=== PATIENT | female | born 1965 | race Caucasian/White ===

== ENCOUNTER 2019-12-20 13:09 | Outpatient (CLI) | payer OTHER, SELFPAY ==
--- NOTE | ~2019-12-20 | XR_ITS ---
EXAMINATION: XR_CERV2-3V_CR DATE: 12/20/2019 13:24 INDICATION: Neck pain. TECHNIQUE: 4 views of cervical spine were obtained. COMPARISON: Cervical spine radiographs 03/24/2013 FINDINGS: There is 2 mm retrolisthesis of C4 on C5. There is hypolordosis of cervical spine. Vertebra l body heights are normal. There is mildly decreased disc height at C3-C4 and C5-C6, severely decreas ed disc height at C4-C5, and moderately decreased disc height at C6-C7. There is multilevel uncoverte bral joint osteoarthritis, severe bilaterally at C4-C5 and C6-C7. There is multilevel mild facet join t osteoarthritis. There is mild central canal stenosis at C4-C5 and C6-C7. No prevertebral soft tissu e swelling. IMPRESSION: 1. Worsened severe cervical spondylosis. Reviewed, dictated and finalized at location A. ONATION TESTER
== END 2019-12-20 13:10 | disposition home or self-care (01) ==
PROVIDERS: PCP Family Medicine; Visit Provider Family Medicine
DX: R42 Dizziness and giddiness (principal); M47.812 Spondylosis without myelopathy or radiculopathy, cervical region
CPT/HCPCS: 72040; 92557; 92567

== ENCOUNTER 2019-12-20 18:04 | Outpatient (CLI) | payer OTHER, SELFPAY ==
--- NOTE | ~2019-12-20 | CT_ITS ---
EXAMINATION: CT brain wo con DATE: 12/20/2019 18:35 INDICATION: Head injury 5 days prior. Positional dizziness. Right-sided hearing loss. TECHNIQUE: Computed tomography (CT) of the head was performed without intravenous contrast. Sagittal and coronal reconstructions were performed. The mA was adjusted according to patient size. Iterative reconstruction technique was employed. The dose-length product was 605.33 mGy-cm. COMPARISON: head CT dated 03/24/13 and brain MR dated 04/21/2017 FINDINGS: No fracture. No acute intracranial hemorrhage, acute infarction or abnormal extra axial fluid collect ion. Ventricles are normal and symmetric. There are 4 small dural based calcifications. The largest i s along the squamosal portion of the right temporal bone measures 6 x 3 mm with semicircular configur ation suggesting a calcified meningioma. Additional smaller calcifications are seen near the course o f the lateral meningeal arteries, 2 on the right and one on the left. Mucous retention cyst in the ri ght sphenoid sinus. Orbits are normal. Bilateral mastoid air cells and middle ear cavities are clear. Internal auditory canals are unremarkable. IMPRESSION: 1. No fracture or acute intracranial process. 2. 4 small dural based calcifications which raises the possibility of multiple meningiomas such as in the setting of neurofibromatosis 2. Given the provided history of unilateral hearing loss and positi onal dizziness would consider further evaluation with pre and postcontrast MRI of the temporal bones/ internal auditory canals. Reviewed, dictated and finalized at location A. FLIGHT TECHNICIAN IMPRESSION: 1. No fracture or acute intracranial process. 2. 4 small dural based calcifications which raises the possibility of multiple meningiomas such as in the setting of neurofibromatosis 2. Given the provided h istory of unilateral hearing loss and positional dizziness would consider furth er evaluation with pre and postcontrast MRI of the temporal bones/internal addison tory canals.
== END 2019-12-20 18:05 | disposition home or self-care (01) ==
PROVIDERS: PCP Family Medicine; Visit Provider Family Medicine
DX: M54.2 Cervicalgia (principal); R42 Dizziness and giddiness; R51 Headache; S09.90XA Unspecified injury of head, initial encounter; R93.0 Abnormal findings on diagnostic imaging of skull and head, not elsewhere classified
CPT/HCPCS: 70450

== ENCOUNTER 2019-12-21 08:48 | Outpatient (CLI) | payer OTHER, SELFPAY ==
[2019-12-21 17:26] LABS: Basophils Absolute Auto 0.1 K/mm3 (0.0-0.1); Basophils Percent Auto 1.1 % (0.2-1.2); Eosinophils Absolute Auto 0.2 K/mm3 (0-0.3); Eosinophils Percent Auto 2.2 % (0-4.4); Hematocrit 44.4 % (37.0-47.0); Hemoglobin 13.7 g/dL (12.0-15.0); Immature Granulocyte Absolute 0.02 K/mm3 (0.00-0.031); Immature Granulocyte Percent A 0.3 % (0-0.5); Lymphocytes Absolute Auto 2.37 K/mm3 (0.9-3.2); Mean Corpuscular HGB Conc 30.9 g/dl (32-36); Mean Corpuscular Hemoglobin 28.3 pg (26-34); Mean Corpuscular Volume 91.7 fl (80-100); Mean Platelet Volume 12.1 fl (7.4-10.4); Monocytes Absolute Auto 0.5 K/mm3 (0.1-0.6); Monocytes Percent Auto 7.3 % (2.6-8.5); Neutrophils Absolute Auto 4.2 K/mm3 (1.3-6.7); Neutrophils Percent Auto 57.1 % (45.5-73.1); Platelet Count Result 277 k/mm3 (150-375); Red Blood Count 4.84 M/mm3 (4.2-5.4); Red Cell Distribution Width 13.7 % (11.5-14.5); White Blood Count 7.4 K/mm3 (4.5-10.0)
[2019-12-21 17:32] LABS: Add Urine Microscopic? YES; Appearance Urine Clear (Clear); Bilirubin Urine Negative (Negative); Blood Urine 1+ (Negative); Color Urine Yellow (Yellow); Glucose Urine UA Negative (Negative); Ketones Urine Negative (Negative); Leukocyte Esterase Ur Negative LEU/UL (Negative); Mucus Urine Rare /lpf; Nitrate Urine Negative (Negative); Protein Urine Negative (Negative); RBC Urine 0-2 /hpf (0-2); Specific Grav Ur 1.018 (1.001-1.035); Squamous Epithelial Cell Urine Rare /hpf (Few); Urobilinogen Urine Negative mg/dL (<2.0); WBC Urine 0-3 /hpf
[2019-12-21 17:37] LABS: Alanine Aminotransferase 20 U/L (4-35); Albumin Level 4.5 g/dL (3.5-5.1); Alkaline Phosphatase 98 U/L (38-126); Aspartate Amino Transferase 22 U/L (14-36); Bilirubin,Total 0.6 mg/dL (0.2-1.3); Blood Urea Nitrogen 18 mg/dL (7-17); Calcium 9.8 mg/dL (8.4-10.2); Carbon Dioxide 29 mmol/L (22-30); Chloride 96 mmol/L (98-107); Cholesterol 243 mg/dL (0-200); Estimated Glomerular Filt Rate > 60; Glucose 101 mg/dL (65-105); HDL Direct 81 mg/dL; Magnesium 2.3 mg/dL (1.6-2.3); Sodium 138 mmol/L (137-145); Triglycerides 101 mg/dL (<150)
[2019-12-21 17:45] LABS: LDL Cholesterol Direct 146 mg/dL
[2019-12-21 17:50] LABS: Free T4 Free Thyroxine 1.23 ng/mL (0.78-2.19); Vitamin D 25 Hydroxy 47.3 ng/mL
[2019-12-21 17:52] LABS: Rheumatoid Factor < 8.6 IU/ML (<12)
[2019-12-21 18:39] LABS: Folic Acid 8.1 ng/mL (2.76->20)
[2019-12-21 18:53] LABS: CRP 0.5 mg/dL (<1.0)
[2019-12-23 13:10] LABS: C-Peptide 2.13 ng/mL (0.80-3.85); FSH 57.6 mIU/mL (***); Progesterone <0.2 ng/mL (***); Triiodothyronine T3 Free 3.1 pg/mL (2.3-4.2)
[2019-12-25 12:25] LABS: T3 Reverse 14 ng/dL (8-25)
[2019-12-25 14:18] LABS: Testosterone Free 1.4 pg/mL (0.1-6.4); Testosterone Total 22 ng/dL (2-45)
[2019-12-26 12:54] LABS: Sex Hormone Binding Globulin 99 nmol/L (17-124)
[2019-12-28 16:31] LABS: Estradiol, Ultrasensitive 8 pg/mL
== END 2019-12-21 08:49 | disposition home or self-care (01) ==
LOC: ANHBWCLAB 08:51
PROVIDERS: PCP Family Medicine; Visit Provider Family Medicine
DX: E25.9 Adrenogenital disorder, unspecified (principal); I10 Essential (primary) hypertension; E66.9 Obesity, unspecified; R42 Dizziness and giddiness; R51 Headache; M19.90 Unspecified osteoarthritis, unspecified site; Z79.899 Other long term (current) drug therapy; Z82.62 Family history of osteoporosis
CPT/HCPCS: 36415; 80053; 80061; 81001; 82306; 82607; 82670; 82746; 83001; 83735; 84144; 84270; 84402; 84403; 84439; 84443; 84481; 84482; 84681; 85025; 86038; 86140; 86430

== ENCOUNTER 2019-12-21 16:39 | Outpatient (CLI) | payer OTHER, SELFPAY ==
--- NOTE | ~2019-12-21 | MR_ITS ---
EXAMINATION: MR brain IAC wo/w con DATE: 12/21/2019 17:54 INDICATION: Dizziness and giddiness. TECHNIQUE: Magnetic resonance imaging (MRI) of the brain, brainstem, and internal auditory canals was performed without and with 20 mL MultiHance intravenous contrast. Sequences included sagittal and ax ial T1-weighted FSE, axial diffusion-weighted FS EPI, axial T2*-weighted GRE, axial T2-weighted FLAIR Propeller, axial T2-weighted Propeller, small glrfr-qz-unnj coronal FIESTA, small wdsqt-lz-xsxz sarah nal T1-weighted FSE, and small oquxr-gv-ugli axial T1-weighted SPGR. Postcontrast sequences included axial T1-weighted FSE, small qlglm-em-kbkx coronal T1-weighted FSE, and small ecgwx-za-dcrn axial T1- weighted SPGR. Apparent diffusion coefficient (ADC) maps were created. COMPARISON: Brain MRI 04/21/2017 FINDINGS: There are scattered areas of nonspecific increased T2-weighted signal intensity in the cere bral white matter. There is no intracranial hemorrhage, acute infarction, or abnormal intracranial ma ss lesion. The ventricles are normal in size. The internal auditory canals and inner and middle ears are normal. The mastoid air cells are normal. There are mucous retention cysts in the sphenoid and ri ght maxillary sinuses. The orbits are normal. IMPRESSION: 1. Unchanged mild nonspecific cerebral white matter disease, which likely represents chronic small ve ssel ischemic disease. Reviewed, dictated and finalized at location A. AURANT LINE SERVER IMPRESSION: 1. Unchanged mild nonspecific cerebral white matter disease, which likely repre sents chronic small vessel ischemic disease.
[2019-12-21 17:19] LABS: Blood Urea Nitrogen 20 mg/dL (8-26); Estimated Glomerular Filt Rate > 60
== END 2019-12-21 16:40 | disposition home or self-care (01) ==
PROVIDERS: PCP Family Medicine; Visit Provider Family Medicine
DX: R42 Dizziness and giddiness (principal); R90.89 Other abnormal findings on diagnostic imaging of central nervous system; R90.82 White matter disease, unspecified
CPT/HCPCS: 70553; A9577

== ENCOUNTER 2019-12-28 16:54 | Outpatient (RCR) | payer OTHER, SELFPAY ==
--- NOTE | 2019-12-28 17:43 | PTOPEVAL ---
Thank you for referring this patient to [facility]. Please review, sign, date and return this plan of care [facility]. I agree with and certify that the following plan of care is medically necessary. Referring Physician Date Admitting Provider: Attending Provider: Emilio Borden DO Referring Provider: *PT Outpatient Evaluation Start: 12/28/19 16:59 Freq: Status: Active Protocol: Document 12/28/19 17:00 REMEDIOS (Rec: 12/28/19 17:36 [id number] Therapy Assessment Status Assessment Status Assessment Status Evaluation Outpatient Past Medical History Past Medical History Reason Unable to Obtain see patient intake form Evaluation Information Problem Diagnosis dorsalgia, dizziness and giddiness Onset 12/18/19 Additional Evaluation Detail DHI = 62% functionally declined Subjective Information patient reports she is having Query Text:As Reported By Patient/ vertigo. she reports she has Family had symptoms for about 1 week and 3 days. she reports she has been to the md. she reports she does have a history of back and neck pain. she reports she has never had vertigo. she reports the friday prior to issues beginning she reports she hit her head when turning on her work equipment. she reports she has had some hearing problems associated with this injury. she reports a week ago friday she began having symptoms with laying down in bed. she reports she was in a daze initially but is better. she reports she has the most symptoms with getting down and up from her R side. she reports she does have symptoms to either side. Prior Level of Function Comments Additional Prior Level of Function no issues prior to hitting her Comments head. she reports she has a long history of back and neck pain. Pain Assessment Timing of Pain Assessment Timing of Pain Assessment Assessment Pain Scale Pain Scale Used Numeric (1 - 10) Self Report Pain Assessment Neck Reported Pain Level 4
--- NOTE | 2020-01-25 17:31 | PCPTNOTE ---
01/25/20- pt will be discharged on this date per evaluating therapist.KARYNA
== END 2019-12-31 08:47 | disposition home or self-care (01) ==
LOC: CHSPT 16:54
PROVIDERS: PCP Family Medicine; Visit Provider Family Medicine
DX: R42 Dizziness and giddiness (principal); M54.9 Dorsalgia, unspecified
CPT/HCPCS: 97112; 97161; 97530

== ENCOUNTER 2022-02-15 07:45 | Outpatient (CLI) | payer OTHER, SELFPAY | END 2022-02-15 07:46 | disposition home or self-care (01) | LOC: ANHBWCAUD 07:46 | PROVIDERS: PCP Family Medicine; Visit Provider Family Medicine | DX: H93.19 Tinnitus, unspecified ear (principal); H90.41 Sensorineural hearing loss, unilateral, right ear, with unrestricted hearing on the contralateral side | CPT/HCPCS: 92557; 92567 ==

== ENCOUNTER 2022-07-29 09:21 | Outpatient (CLI) | payer OTHER, SELFPAY ==
--- NOTE | ~2022-07-29 | XR_ITS ---
EXAMINATION: XR finger 3rd LT min 2V DATE: 07/29/2022 09:29 INDICATION: Left hand third digit pain and swelling. TECHNIQUE: 4 views of left hand third digit were obtained. COMPARISON: Left hand radiographs 07/02/2010 FINDINGS: Bone alignment is normal. No acute fracture. There is mild osteoarthritis of third distal i nterphalangeal joint. IMPRESSION: 1. No fracture. Reviewed, dictated and finalized at location B. IMPRESSION: 1. No fracture.
== END 2022-07-29 09:22 | disposition home or self-care (01) ==
LOC: ANHBWCIMG 09:23
PROVIDERS: PCP Family Medicine; Visit Provider Family Medicine
DX: M19.042 Primary osteoarthritis, left hand (principal)
CPT/HCPCS: 73140

== ENCOUNTER 2022-10-07 11:29 | Outpatient (CLI) | payer OTHER, SELFPAY ==
[2022-10-07 18:48] LABS: Hemoglobin A1C 5.7 % (<5.7)
[2022-10-07 18:51] LABS: Alanine Aminotransferase 41 U/L (6-35); Albumin Level 4.6 g/dL (3.5-5.1); Alkaline Phosphatase 94 U/L (38-126); Anion Gap 3 mmol/L (8-16); Aspartate Amino Transferase 89 U/L (14-36); Bilirubin,Total 0.7 mg/dL (0.2-1.3); Blood Urea Nitrogen 17 mg/dL (7-17); Calcium 9.2 mg/dL (8.4-10.2); Carbon Dioxide 35 mmol/L (22-30); Chloride 97 mmol/L (98-107); Cholesterol 244 mg/dL (0-200); Estimated Glomerular Filt Rate > 60; Glucose 81 mg/dL (65-110); HDL Direct 62 mg/dL; Potassium 3.9 mmol/L (3.4-5.0); Sodium 135 mmol/L (137-145); Triglycerides 125 mg/dL (<150)
[2022-10-07 18:57] LABS: Basophils Absolute Auto 0.1 K/mm3 (0.0-0.1); Basophils Percent Auto 0.7 % (0.2-1.2); Eosinophils Absolute Auto 0.2 K/mm3 (0-0.3); Eosinophils Percent Auto 1.7 % (0-4.4); Hemoglobin 13.7 g/dL (12.0-15.0); Immature Granulocyte Absolute 0.03 K/mm3 (0.00-0.031); Immature Granulocyte Percent A 0.3 % (0-0.5); Lymphocytes Absolute Auto 2.73 K/mm3 (0.9-3.2); Lymphocytes Percent Auto 30.3 % (18.3-44.2); Mean Corpuscular HGB Conc 30.4 g/dl (32-36); Mean Corpuscular Hemoglobin 28.1 pg (26-34); Mean Corpuscular Volume 92.4 fl (80-100); Mean Platelet Volume 11.9 fl (7.4-10.4); Monocytes Absolute Auto 0.6 K/mm3 (0.1-0.6); Monocytes Percent Auto 7.1 % (2.6-8.5); Neutrophils Absolute Auto 5.4 K/mm3 (1.3-6.7); Neutrophils Percent Auto 59.9 % (45.5-73.1); Platelet Count Result 306 k/mm3 (150-375); Red Blood Count 4.87 M/mm3 (4.2-5.4); Red Cell Distribution Width 14.3 % (11.5-14.5)
[2022-10-07 19:01] LABS: LDL Cholesterol Direct 117 mg/dL
[2022-10-10 18:08] LABS: ANA Cascade Screen Negative (Negative)
== END 2022-10-07 11:30 | disposition home or self-care (01) ==
PROVIDERS: PCP Family Medicine; Visit Provider Family Medicine
DX: M25.50 Pain in unspecified joint (principal); M54.50 Low back pain, unspecified; G89.29 Other chronic pain; E66.9 Obesity, unspecified; F41.9 Anxiety disorder, unspecified
CPT/HCPCS: 36415; 80053; 80061; 83036; 84443; 85025; 86038

== ENCOUNTER 2023-05-21 07:27 | Outpatient (CLI) | payer OTHER, SELFPAY ==
[2023-05-21 19:12] LABS: Hematocrit 42.4 % (37.0-47.0); Hemoglobin 13.2 g/dL (12.0-15.0); Mean Corpuscular HGB Conc 31.1 g/dl (32-36); Mean Corpuscular Hemoglobin 28.4 pg (26-34); Mean Corpuscular Volume 91.2 fl (80-100); Mean Platelet Volume 11.6 fl (7.4-10.4); Platelet Count Result 348 k/mm3 (150-375); Red Blood Count 4.65 M/mm3 (4.2-5.4); Red Cell Distribution Width 13.9 % (11.5-14.5)
[2023-05-21 19:33] LABS: Alanine Aminotransferase 34 U/L (6-35); Albumin Level 4.4 g/dL (3.5-5.1); Alkaline Phosphatase 104 U/L (38-126); Anion Gap 7 mmol/L (8-16); Aspartate Amino Transferase 99 U/L (14-36); Bilirubin,Total 0.5 mg/dL (0.2-1.3); Blood Urea Nitrogen 19 mg/dL (7-17); Calcium 9.5 mg/dL (8.4-10.2); Carbon Dioxide 34 mmol/L (22-30); Chloride 97 mmol/L (98-107); Estimated Glomerular Filt Rate > 60; Glucose 92 mg/dL (65-110); Potassium 4.3 mmol/L (3.4-5.0); Sodium 138 mmol/L (137-145)
[2023-05-21 20:02] LABS: Hemoglobin A1C 5.6 % (<5.7)
== END 2023-05-21 07:28 | disposition home or self-care (01) ==
PROVIDERS: PCP Family Medicine; Visit Provider Family Medicine
DX: Z00.00 Encounter for general adult medical examination without abnormal findings (principal); R73.03 Prediabetes
CPT/HCPCS: 36415; 80053; 83036; 85027

== ENCOUNTER 2024-03-03 07:30 | Outpatient (CLI) | payer OTHER, SELFPAY ==
--- NOTE | ~2024-03-03 | XR_ITS ---
EXAMINATION: XR chest 2V DATE: 03/03/2024 10:26 INDICATION: Shortness of breath. TECHNIQUE: Frontal and lateral views of the chest were obtained. COMPARISON: Chest 2 views 10/19/2016, CT abdomen and pelvis 09/05/2018 FINDINGS: There is no pneumonia, pleural effusion, or pneumothorax. There are prominent pericardial f at pads. The heart size is normal. IMPRESSION: 1. No acute cardiopulmonary disease. Reviewed, dictated and finalized at location A.
[2024-03-03 20:47] LABS: Appearance Urine Clear (Clear); Bilirubin Urine Negative (Negative); Blood Urine Negative (Negative); Color Urine Yellow (Yellow); Glucose Urine UA Negative (Negative); Ketones Urine Negative (Negative); Leukocyte Esterase Ur Negative LEU/UL (Negative); Nitrate Urine Negative (Negative); Protein Urine Negative (Negative); Specific Grav Ur 1.018 (1.001-1.035); Urobilinogen Urine 0.2 mg/dL (<2.0); pH Urine 6.5 (5.0-9.0)
[2024-03-03 20:55] LABS: Hematocrit 42.6 % (37.0-47.0); Hemoglobin 12.9 g/dL (12.0-15.0); Mean Corpuscular Volume 92.4 fl (80-100); Red Blood Count 4.61 M/mm3 (4.2-5.4); White Blood Count 8.2 K/mm3 (4.5-10.0)
[2024-03-03 20:55] LABS: Add Urine Microscopic? NO
[2024-03-03 20:56] LABS: Mean Corpuscular HGB Conc 30.3 g/dl (32-36); Mean Platelet Volume 11.8 fl (7.4-10.4); Platelet Count Result 262 k/mm3 (150-375); Red Cell Distribution Width 14.1 % (11.5-14.5)
[2024-03-03 20:58] LABS: Alanine Aminotransferase 29 U/L (6-35); Albumin Level 4.7 g/dL (3.5-5.1); Alkaline Phosphatase 99 U/L (38-126); Anion Gap 6 mmol/L (4-12); Aspartate Amino Transferase 54 U/L (14-36); Bilirubin,Total 0.6 mg/dL (0.2-1.3); Blood Urea Nitrogen 24 mg/dL (7-17); Carbon Dioxide 30 mmol/L (22-30); Chloride 101 mmol/L (98-107); Cholesterol 245 mg/dL (0-200); Estimated Glomerular Filt Rate > 60; Glucose 100 mg/dL (65-110); HDL Direct 54 mg/dL; Lactate Dehydrogenase 190 U/L (120-246); Potassium 4.6 mmol/L (3.4-5.0); Sodium 137 mmol/L (137-145); Triglycerides 119 mg/dL (<150)
[2024-03-03 21:05] LABS: NT Pro B Type Natriuretic Pept 42 pg/mL (19.9-100)
[2024-03-03 21:09] LABS: LDL Cholesterol Direct 149 mg/dL
[2024-03-03 21:14] LABS: Vitamin D 25 Hydroxy 23.9 ng/mL
[2024-03-03 21:42] LABS: Erythrocyte Sedimentation Rate 13 mm/hr (0-20)
[2024-03-03 22:11] LABS: Hemoglobin A1C 5.4 % (<5.7)
[2024-03-05 12:23] LABS: CRP, High Sensitivity >20.0 mg/L
== END 2024-03-03 07:31 | disposition home or self-care (01) ==
PROVIDERS: PCP Family Medicine; Visit Provider Family Medicine
DX: Z00.00 Encounter for general adult medical examination without abnormal findings (principal); G51.4 Facial myokymia; R06.00 Dyspnea, unspecified; R53.83 Other fatigue; T78.40XA Allergy, unspecified, initial encounter; R73.03 Prediabetes; R42 Dizziness and giddiness; K21.9 Gastro-esophageal reflux disease without esophagitis; J45.909 Unspecified asthma, uncomplicated; G51.0 Bell's palsy; F41.9 Anxiety disorder, unspecified; E66.01 Morbid (severe) obesity due to excess calories
CPT/HCPCS: 36415; 71046; 80053; 80061; 81003; 82306; 82607; 83036; 83615; 83880; 84443; 85027; 85652; 86141

== ENCOUNTER 2024-04-12 07:33 | Outpatient (CLI) | payer OTHER, SELFPAY ==
--- NOTE | 2024-04-12 14:29 | ECHO_ITS ---
Patient Info Name: Nicol Samuels Age: 58 years : 1965 Gender: Female Ht: 65 in Wt: 350 lbs BSA: 2.80 m2 HR: 113 bpm BP: 137 / 78 mmHg Heart Rhythm: Tachycardia Technical Quality: Fair Exam Date: 04/12/2024 2:44 PM Exam Location: Echo Lab Patient Status: Outpatient Admit Date: 04/12/2024 Staff Ordering Physician: Vinayak Terry MD Manager Unit: Brianna Valentine RDCS Attending Provider: Vinayak Terry MD Referring Physician: Harrison JACQUES; Exam Type: CA echo dop color flow w con Study Info Indications R06.00 - Dyspnea, unspecified Complete two-dimensional, color flow and Doppler transthoracic echocardiogram is performed with contrast to opacify the left ventricle and to improve the deliniation of the left ventricle endocardial borders. Contrast/Agitated Saline Contrast/Ag. Saline: Definity Amount: 3.00 ml Administered By: Brianna Valentine RDCS Existing IV Access: Yes IV Access Condition: patent with no signs of infiltration Summary 1. Definity contrast administered improved wall motion interpretation. 2. Left ventricular chamber dimension is normal. 3. Left ventricular systolic function is normal, estimated at 65-70%. 4. The left ventricular diastolic function is abnormal. 5. E/e' 10 is mildly elevated. Left Ventricle E/e' 10 is mildly elevated. Definity contrast administered improved wall motion interpretation. Left ventricular chamber dimension is normal. Left ventricular systolic function is normal, estimated at 65-70%. The left ventricular diastolic function is abnormal. Right Ventricle Right ventricular systolic function is normal and with normal TAPSE 1.9 cm. Right ventricular chamber dimension is normal. Left Atria Left atrial chamber dimension is normal. Right Atria Right atrial chamber dimension is normal. Aortic Valve The aortic valve is probable trileaflet. There is no aortic valve stenosis. There is no aortic valve regurgitation. Pulmonic Valve There is no pulmonic regurgitation. Mitral Valve There is no mitral valve stenosis. There is no mitral valve regurgitation. Tricuspid Valve There is no tricuspid valve regurgitation. Pericardium/Pleural There is no pericardial effusion. Inferior Vena Cava Normal inferior vena cava with >50% collapse upon inspiration consistent with normal right atrial pressure, 5 mmHg. Aorta The aortic root size at the sinus of Valsalva is normal. Left Ventricular Outflow Tract Name Value Normal LVOT 2D LVOT Diameter 2.08 cm LVOT Doppler LVOT Peak Gradient 12 mmHg LVOT Mean Gradient 7 mmHg LVOT VTI 26.17 cm LVOT VTI/AV VTI Ratio 0.95 LVOT Stroke Volume 88.98 ml Pulmonic Valve Name Value Normal RVOT Doppler RVOT Peak Gradient 4 mmHg PV Doppler
[2024-04-12] MEDS: PERFLUTREN LIPID MICROSPHERES 1.5 ML VIAL DILUTED TO 10 ML TOTAL VOLUME IV PUSH (15:00)
--- NOTE | 2024-04-12 15:53 | IVDEFINITY ---
Prior to administration of IV Definity the patient was educated on the risks and benefits of the imaging enhancing agent including potential adverse side effects. The patient verbalized understanding. Allergies were verified. No exclusion criteria were identified and at least one of the following inclusion criteria were met: 1) physician request, 2) patient technically difficult to image (per the [place] [employer]ch[employer] guidelines of two or more segments not discernable within the apical view), or 3) questionable left ventricular function. ?
== END 2024-04-12 07:34 | disposition home or self-care (01) ==
PROVIDERS: PCP Family Medicine; Visit Provider Family Medicine
DX: R06.00 Dyspnea, unspecified (principal); R53.83 Other fatigue; E66.01 Morbid (severe) obesity due to excess calories; I10 Essential (primary) hypertension; R93.1 Abnormal findings on diagnostic imaging of heart and coronary circulation
CPT/HCPCS: C8929; Q9957

== ENCOUNTER 2024-04-21 07:49 | Outpatient (CLI) | payer OTHER, SELFPAY ==
[2024-04-21 19:19] LABS: Iron 83 ug/dL (37-170)
[2024-04-21 19:29] LABS: Percent Iron Saturation 23 % (20-50)
[2024-04-21 19:31] LABS: Erythrocyte Sedimentation Rate 16 mm/hr (0-20)
[2024-04-23 13:32] LABS: ANA Cascade Screen NEGATIVE (NEGATIVE)
[2024-04-23 15:29] LABS: CRP, High Sensitivity 12.1 mg/L
== END 2024-04-21 07:50 | disposition home or self-care (01) ==
PROVIDERS: PCP Family Medicine; Visit Provider Family Medicine
DX: E66.01 Morbid (severe) obesity due to excess calories (principal); R53.83 Other fatigue; R79.82 Elevated C-reactive protein (CRP); G51.0 Bell's palsy; R06.00 Dyspnea, unspecified; R13.10 Dysphagia, unspecified; R51.9 Headache, unspecified
CPT/HCPCS: 36415; 82728; 83540; 83550; 85652; 86038; 86141; 86225; 86235; 86364

== ENCOUNTER 2024-12-30 07:17 | Outpatient (CLI) | payer OTHER, SELFPAY ==
--- OUTSIDE RECORDS SUMMARY | 2024-12-30 07:24 | XMS_ITS | Clinical Summary ---
Author Organization [facility] Address [address] [place] [address] Phone Care Team Providers Care French Folder Name Role Phone Unavailable Primary Care Provider Unavailabl e Social History Tobacco Use Types Packs/Day Years Used Date Smoking Tobacco: Never Assessed Comments Unknown Sex and Gender Information Value Date Recorded Sex Assigned at Not on file Legal Sex Female 10:39 PM CDT Gender Identity Not on file Sexual Orientation Not on file Plan of Treatment Not on file
[2024-12-30 18:57] LABS: Basophils Absolute Auto 0.1 K/mm3 (0.0-0.1); Basophils Percent Auto 0.8 % (0.2-1.2); Eosinophils Absolute Auto 0.1 K/mm3 (0-0.3); Hematocrit 41.3 % (37.0-47.0); Hemoglobin 12.8 g/dL (12.0-15.0); Immature Granulocyte Absolute 0.04 K/mm3 (0.00-0.031); Immature Granulocyte Percent A 0.3 % (0-0.5); Lymphocytes Absolute Auto 3.36 K/mm3 (0.9-3.2); Lymphocytes Percent Auto 28.3 % (18.3-44.2); Mean Corpuscular Hemoglobin 27.8 pg (26-34); Mean Corpuscular Volume 89.6 fl (80-100); Mean Platelet Volume 11.5 fl (7.4-10.4); Monocytes Absolute Auto 0.9 K/mm3 (0.1-0.6); Monocytes Percent Auto 7.5 % (2.6-8.5); Neutrophils Absolute Auto 7.4 K/mm3 (1.3-6.7); Neutrophils Percent Auto 62.1 % (45.5-73.1); Platelet Count Result 331 k/mm3 (150-375); Red Blood Count 4.61 M/mm3 (4.2-5.4); Red Cell Distribution Width 14.8 % (11.5-14.5); White Blood Count 11.9 K/mm3 (4.5-10.0)
[2024-12-30 19:04] LABS: Alanine Aminotransferase 26 U/L (6-35); Albumin Level 4.5 g/dL (3.5-5.1); Alkaline Phosphatase 112 U/L (38-126); Anion Gap 11 mmol/L (4-12); Aspartate Amino Transferase 48 U/L (14-36); Bilirubin,Total 0.5 mg/dL (0.2-1.3); Blood Urea Nitrogen 21 mg/dL (7-17); Calcium 9.4 mg/dL (8.4-10.2); Carbon Dioxide 28 mmol/L (22-30); Chloride 95 mmol/L (98-107); Estimated Glomerular Filt Rate > 60; Glucose 97 mg/dL (65-110); Potassium 4.6 mmol/L (3.4-5.0); Sodium 134 mmol/L (137-145)
== END 2024-12-30 07:18 | disposition home or self-care (01) ==
PROVIDERS: PCP Family Medicine; Visit Provider Nurse Practitioner Family
DX: T14.8XXA Other injury of unspecified body region, initial encounter (principal); W55.01XA Bitten by cat, initial encounter
CPT/HCPCS: 36415; 80053; 85025

== ENCOUNTER 2025-08-29 11:15 | Outpatient (CLI) | payer OTHER, SELFPAY ==
--- NOTE | ~2025-08-29 | XR_ITS ---
Clinical history:Pain EXAM:X-ray knee right TECHNIQUE:4 images of the right knee were obtained. Comparisons:None available FINDINGS: Bones appear osteopenic. Severe narrowing of the patellofemoral joint and medial compartment. Moderate-sized lateral spur off of the patella. Moderate narrowing of the lateral compartment. No obvious fracture. The study is limited due to the patient's imaging characteristics. IMPRESSION: 1. Study is limited due to patient imaging characteristics 2. No fracture identified. However, the study is limited. 3. Severe narrowing of the medial compartment and patellofemoral joint. If symptoms persist or worsen, consider a short-term follow-up study or additional imaging for further assessment. Reviewed, dictated and finalized at location Q. C TEACHER IMPRESSION: 1. Study is limited due to patient imaging characteristics 2. No fracture identified. However, the study is limited. 3. Severe narrowing of the medial compartment and patellofemoral joint. If symptoms persist or worsen, consider a short-term follow-up study or additio nal imaging for further assessment.
--- NOTE | ~2025-08-29 | XR_ITS ---
XR knee LT min 4V 08/29/2025 16:08 Indication: Left knee pain Procedure: 4 views left knee Comparison: 04/26/2005 Findings: There is severe tricompartment osteoarthritis. No fracture, subluxation or dislocation. No significant joint effusion. Impression: 1: Severe tricompartment osteoarthritis of the left knee. Reviewed, dictated and finalized at location O. COMMUNICATIONS OFFICER Impression: 1: Severe tricompartment osteoarthritis of the left knee.
--- OUTSIDE RECORDS SUMMARY | 2025-08-29 12:54 | XMS_ITS | Clinical Summary ---
Author Organization [facility] Address [address] [address] Phone Care Team Providers Care High Speed Warper Tender Name Role Phone Unavailable Primary Care Provider [...]
== END 2025-08-29 11:16 | disposition home or self-care (01) ==
PROVIDERS: PCP Family Medicine; Visit Provider Family Medicine
DX: M25.561 Pain in right knee (principal); M25.562 Pain in left knee
CPT/HCPCS: 73564

== ENCOUNTER 2025-09-21 11:26 | Outpatient (CLI) | payer OTHER, SELFPAY ==
--- NOTE | ~2025-09-21 | MR_ITS ---
EXAMINATION: MR knee RT wo con DATE: 09/21/2025 12:42 INDICATION: Chronic right knee pain. History of trauma. No mention of prior surgery. TECHNIQUE: Magnetic resonance imaging (MRI) of the right knee was performed without intravenous contrast. Sequences included axial PD-weighted FS FSE, coronal PD-weighted FSE and PD-weighted FS FSE, sagittal PD-weighted FSE, and sagittal T2-weighted FS FSE. COMPARISON: Radiograph dated 08/29/2025. FINDINGS: Overall quality of visualization is significantly Limited by the very large body habitus of this patient. No acute bony lesions at the right knee. Advanced grade 4 degenerative changes of medial articular cartilage is. Severe chronic degenerative changes of medial meniscus significant medial extrusion of mid medial meniscus. The cruciate ligaments are intact. Severe degenerative changes of the lateral meniscus. Significant grade 3 to grade 4 degenerative changes of the lateral articular cartilage. Significant fragmentation of the anterior horn of the lateral meniscus is noted. Quadriceps tendon and fibular tendon are intact. Grade 4 degenerative changes of patellofemoral articular cartilage at the lateral facet. Small effusion in the knee joint with small osteochondral debris in the fluid. Infrapatellar bursitis. IMPRESSION: 1. Suboptimal visualization due to large body habitus. 2. Advanced grade 4 degenerative changes of medial articular cartilage and severe degenerative changes and chronic fragmentation and degenerative changes of medial meniscus. Medial extrusion of mid medial meniscus. 3. Significant grade 3 to grade 4 degenerative changes of lateral articular cartilage and significant degenerative changes of the anterior horn of lateral meniscus with fragmentation. 4. Significant, grade 4 degenerative changes of the lateral facet of patellofemoral articular cartilage. 5. Effusion in the knee joint with multiple small osteochondral loose bodies. Reviewed, dictated and finalized at location T. E ERECTOR SUPERVISOR IMPRESSION: 1. Suboptimal visualization due to large body habitus. 2. Advanced grade 4 degenerative changes of medial articular cartilage and woodrow re degenerative changes and chronic fragmentation and degenerative changes of m edial meniscus. Medial extrusion of mid medial meniscus. 3. Significant grade 3 to grade 4 degenerative changes of lateral articular car tilage and significant degenerative changes of the anterior horn of lateral men iscus with fragmentation. 4. Significant, grade 4 degenerative changes of the lateral facet of patellofem oral articular cartilage. 5. Effusion in the knee joint with multiple small osteochondral loose bodies.
== END 2025-09-21 11:27 | disposition home or self-care (01) ==
LOC: MICIMG 11:27
PROVIDERS: PCP Family Medicine; Visit Provider Orthopaedic Surgery
DX: R93.9 Diagnostic imaging inconclusive due to excess body fat of patient (principal); M23.261 Derangement of other lateral meniscus due to old tear or injury, right knee; M17.11 Unilateral primary osteoarthritis, right knee; M22.2X1 Patellofemoral disorders, right knee; M25.461 Effusion, right knee; M23.41 Loose body in knee, right knee
CPT/HCPCS: 73721